=== PATIENT | female | born 1995 | race Two or more races ===

== ENCOUNTER 2016-08-17 16:07 | Outpatient (CLI) | payer BC, MEDICAID ==
[~2016-08-17] VITALS: Ht 160 cm; Wt 71.7 kg
[~2016-08-17 16:07] MED LIST: CYCL-319 PO; IBUP-1542 PO
[2016-08-17 16:34] VITALS: Ht 160 cm; Wt 71.7 kg
[2016-08-17 16:35] VITALS: BP 116/72; PULSE 90; RESP 18
[2016-08-17] MEDS ORDERED: PREN1TAB91 PO (16:39)
[2016-08-17] MEDS ORDERED: FERR325T5 PO (16:40)
[2016-08-17 19:53] LABS: ADD UMIC YES; UR BILIRUBIN (Dip) 1+ (NEGATIVE); UR BLOOD (Dip) NEGATIVE (NEGATIVE); UR CLARITY CLOUDY (CLEAR); UR COLOR YELLOW (YELLOW); UR GLUCOSE (Dip) NEGATIVE (NEGATIVE); UR KETONES (Dip) NEGATIVE (NEGATIVE); UR LEUKOCYTE ESTERASE (Dip) NEGATIVE (NEGATIVE); UR NITRITE (Dip) NEGATIVE (NEGATIVE); UR TOTAL PROTEIN (Dip) TRACE (NEGATIVE); UR UROBILINOGEN (Dip) 1.0 E.U./dL (0.1-1.0)
[2016-08-17 20:31] LABS: ICTOTEST NEGATIVE (NEGATIVE)
[2016-08-17 20:32] LABS: UR AMORPHOUS CRYSTAL MANY; UR BACTERIA FEW; UR SQUAMOUS EPITHELIAL CELL FEW; URINE RBCS NONE SEEN /HPF (0)
--- NOTE | 2016-08-17 21:35 | CONS ---
Date/Time of Note Date/Time of Note DATE: 08/17/16 TIME: 21:29 Consultation Date/Type/Reason Admit Date/Time August 17, 2016 OB triage consult note Reason for Consultation This patient is a 20 years old 2 para 1 who delivered by section also she had a history of a -induced hypertension on 2011 She came to triage clinic complaining of cramping of abdomen pain since morning basically she wanted to rule out possibility of labor On examination her general vital signs was normal with blood pressure of 116/72 , pulse rate 90, respiration 18, and temperature 98.2 she describes her abdominal cramping pain as 5/10 Laboratory Tests Test 08/17/16 16:30 Urine Color YELLOW Urine Clarity CLOUDY Urine pH 5.5 Urine Specific [place] >=1.030 Urine Ketones NEGATIVE Urine Nitrite NEGATIVE Urine Bilirubin 1+ Urine Ictotest NEGATIVE Urine Urobilinogen 1.0 E.U./dL Urine Leukocyte Esterase NEGATIVE Urine Microscopic RBC NONE SEEN/HPF Urine Microscopic WBC NONE SEEN/HPF Urine Squamous Epithelial Cells FEW Urine Amorphous Urates MANY Urine Bacteria FEW Urine Hemoglobin NEGATIVE Urine Glucose NEGATIVE% Urine Total Protein TRACE Constitutional: No chills, No diaphoresis, No disoriented, No febrile, No improved, No no complaints, No other, No poor po, No requiring IVF, No requiring O2 Eyes: No discharge, No no complaints, No other, No pain, No redness, No visual change ENT: No bleeding, No congestion, No discharge, No dysphagia, No no complaints, No other, No pain, No sore throat Respiratory: No cough, No no complaints, No other, No pain, No pleuritic pain, No shortness of breath, No sputum, No wheezing Cardiovascular: No chest pain, No edema, No lightheadedness, No no complaints, No orthopenea, No other, No palpitations, No paroxysmal nocturnal dyspnea Gastrointestinal: No blood, No constipation, No decreased appetite, No diarrhea , No flatus, No nausea, No no complaints, No other, No pain, No passing stool, No vomiting Genitourinary: No bleeding, No discharge, No dysuria, No flank pain, No hematuria, No no complaints, No other Musculoskeletal: No back pain, No bone/joint pain, No neck pain, No no complaints, No other, No restricted range of motion, No swelling Skin: No bruising, No erythema, No laceration, No no complaints, No other, No pruritis, No rash, No skin lesions Neurologic: other (Knee-jerk reflex was normal), No confusion, No dizziness, No focal-weakness, No headache, No no complaints , No seizure, No syncope Endocrine: No dry skin, No no complaints, No other, No polydypsia, No polyuria , No temp intolerance Additional Comments With these normal findings patient was reassured and was discharged home to be followed in the clinic end of dictation Social History Smoking Status: Never smoker Exam/Review of Systems Vital Signs Vitals Vital Signs Date Time Temp Pulse Resp B/P Pulse Ox O2 Delivery O2 Flow Rate FiO2 08/17/16 16:35 98.2 90 18 116/72 100 Room Air Results Results 24 hrs Laboratory Tests Test 08/17/16 16:30 Urine Color YELLOW Urine Clarity CLOUDY Urine pH 5.5 Urine Specific [place] >=1.030 H Urine Ketones NEGATIVE Urine Nitrite NEGATIVE Urine Bilirubin 1+ H Urine Ictotest NEGATIVE Urine Urobilinogen 1.0 E.U./dL Urine Leukocyte Esterase NEGATIVE Urine Microscopic RBC NONE SEEN Urine Microscopic WBC NONE SEEN Urine Squamous Epithelial Cells FEW Urine Amorphous Urates MANY Urine Bacteria FEW Urine Hemoglobin NEGATIVE Urine Glucose NEGATIVE Urine Total Protein TRACE SADIE DEL ANGEL MD Aug 17, 2016 21:35
== END 2016-08-17 18:54 | disposition home or self-care (01) ==
LOC: OBT 16:07 → L-D 16:07 → OBT 18:54
PROVIDERS: ATTEND Obstetrics & Gynecology
DX: O26.90 Pregnancy related conditions, unspecified, unspecified trimester (principal); R10.9 Unspecified abdominal pain; Z3A.00 Weeks of gestation of pregnancy not specified
CPT/HCPCS: 81001

== ENCOUNTER 2016-11-17 11:44 | Inpatient (IN) | payer MEDICAID ==
[~2016-11-17] VITALS: Ht 160 cm; Wt 77.4 kg
[~2016-11-17 11:44] MED LIST changes: -CYCL-319 PO; +FERR325T5 PO; -IBUP-1542 PO; +PREN1TAB91 PO
--- NOTE | 2016-11-17 11:47 | TRIAGE ---
OB Triage Datetime Report Generated by CPN: 11/17/2016 11:46 Datetime: 08/17/2016 17:30 Stage of : OB Triage Maternal Assessment Level of Consciousness: Fully Conscious Headache: Denies Nausea/Vomiting: Denies RUQ Epigastric Pain: Denies Labor Evaluation Frequency: 0 Monitor Mode: External Resting Tone [place]: Relaxed Heart Rate FHR Baseline Rate: 145 Monitor Mode: External US FHR Baseline Changes: No Baseline Change Variability: Moderate 6-25 bpm Decelerations: None Pain Assessment Pain Scale: 0 Pain Presence: None/Denies Pain Type: Ache Pain Location: Abdomen Vaginal Exam Membrane Status: Intact Datetime: 08/17/2016 16:44 EGA: 26.0 Datetime: 08/17/2016 16:30 Time of Arrival: 08/17/2016 16:10 Arrived By: Ambulatory Arrived From: Home Chief Complaint: CRAMPING X 2 DAYS Movement: Present Contractions: IRREG Rupture of Membranes: Denies Vaginal Bleeding: None Vaginal Discharge: Present Recent Sexual Intercouse: Denies Abdominal Trauma: Not Applicable Patient Complaints: Cramping Initial Plan: EFM MONITOR UC'S AND FHR Maternal Assessment Level of Consciousness: Fully Conscious DTR's/Clonus: DTRs 2+ Headache: Denies Blurred Vision: No Nausea/Vomiting: Denies RUQ Epigastric Pain: Denies Facial Edema: None Labor Evaluation Frequency: 0 Monitor Mode: External Resting Tone [place]: Relaxed Heart Rate FHR Baseline Rate: 145 Monitor Mode: External US FHR Baseline Changes: No Baseline Change Variability: Moderate 6-25 bpm Decelerations: None Category: Category I Comments: AGA Pain Assessment Pain Scale: 0 Pain Presence: None/Denies Pain Type: Ache Pain Location: Abdomen Vaginal Exam Membrane Status: Intact
[2016-11-17 12:05] VITALS: Ht 160 cm; Wt 77.4 kg
[2016-11-17 12:06] VITALS: BP 145/94; PULSE 72; RESP 18
[2016-11-17] MEDS ORDERED: LACTATED RINGER'S 1,000 ML IV SCH (12:44)
[2016-11-17] MEDS ORDERED: OXYTOCIN 30 UNITS/LR 500 ML IV PRN ×2 (13:00→22:30)
[2016-11-17] MEDS ORDERED: OXYTOCIN 30 UNITS/LR 500 ML IV SCH (13:00)
[2016-11-17] MEDS ORDERED: CEFAZOLIN 2 GM/50 ML (PMX) 50 ML IV SCH (13:00)
[2016-11-17] MEDS ORDERED: METHYLERGONOVINE 0.2 MG INJ IM PRN (13:00)
[2016-11-17] MEDS ORDERED: CARBOPROST 250 MCG INJ IM PRN ×2 (13:00→22:30)
[2016-11-17] MEDS ORDERED: MISOPROSTOL 200 MCG TAB PR PRN ×2 (13:00→22:30)
[2016-11-17] MEDS ORDERED: LACTATED RINGER'S 1,000 ML IV ONE (13:10)
[2016-11-17] MEDS ORDERED: CITRIC ACID/NA CITRATE 30 ML CUP ONE (13:14)
[2016-11-17] MEDS ORDERED: FAMOTIDINE 20 MG INJ ONE (13:14)
[2016-11-17] MEDS ORDERED: METOCLOPRAMIDE 10 MG INJ ONE (13:15)
[2016-11-17 13:26] LABS: ABNORMAL IP MESSAGE 1; BASOPHILS % 0.3 % (0.0-2.0); EOSINOPHILS # 0.1 10^3/ul (0.0-0.5); EOSINOPHILS % 0.5 % (0.0-7.0); HEMATOCRIT 36.5 % (37.0-47.0); HEMOGLOBIN 11.9 g/dl (12.0-16.0); LYMPHOCYTES # 3.6 10^3/ul (0.8-2.9); LYMPHOCYTES % 30.6 % (15.0-51.0); MEAN CORPUSCULAR HEMOGLOBIN 26.9 pg (29.0-33.0); MEAN CORPUSCULAR HGB CONC 32.6 g/dl (32.0-37.0); MEAN CORPUSCULAR VOLUME 82.4 fl (82.0-101.0); MEAN PLATELET VOLUME 13.5 fl (7.4-10.4); MONOCYTE # 0.7 10^3/ul (0.3-0.9); MONOCYTES % 5.7 % (0.0-11.0); NEUTROPHIL # 7.3 10^3/ul (1.6-7.5); NEUTROPHILS % 62.4 % (39.0-77.0); PLATELET COUNT 174 10^3/UL (140-415); RED BLOOD COUNT 4.43 10^6/ul (4.20-5.40); RED CELL DISTRIBUTION WIDTH 13.2 % (11.5-14.5); WHITE BLOOD COUNT 11.7 10^3/ul (4.8-10.8)
--- NOTE | 2016-11-17 13:26 | HP ---
Date/Time of Note Date/Time of Note DATE: 11/17/16 TIME: 13:22 OB - History Hx of Present Chief Complaint: Elevated BP Estimated Due Date: Nov 23, 2016 : 2 Para: 1 Care: Good Care Ultrasounds: Normal mid trimester US Obstetrical Complications: Pre-eclampsia Medical Complications: None Past Family/Social History * Past Medical, Surgical, Family and Obstetric Histories reviewed from chart. GBS Status: Negative OB Admission Exam Vital Signs Vital Signs Vital Signs Date Time Temp Pulse Resp B/P Pulse Ox O2 Delivery O2 Flow Rate FiO2 11/17/16 12:06 98.1 72 18 145/94 Physical Exam HEENT: WNL Heart: Rhythm Normal Lungs: Clear, Equal Abdomen: WNL Extremities: Normal Reflexes: Normal Heart Rate: 130's Accelerations: Accelerations Present Decelerations: No Decelerations OB Assessment/Plan Reason for admission: section Other Assessment: Term Previous Preeclampsia Plan: Section EULOGIO GATES MD Nov 17, 2016 13:26
[2016-11-17 13:29] LABS: POSITIVE DIFF @See below
[2016-11-17] MEDS ORDERED: CITRIC ACID/NA CITRATE 30 ML CUP PO ONE (13:30)
[2016-11-17] MEDS ORDERED: METOCLOPRAMIDE 10 MG INJ IV ONE (13:30)
[2016-11-17] MEDS ORDERED: FAMOTIDINE 20 MG INJ IV ONE (13:30)
[2016-11-17 13:36] LABS: INR 0.85; PROTIME 11.6 Sec (12.2-14.2); PT RATIO 0.9
[2016-11-17 13:37] LABS: PARTIAL THROMBOPLASTIN TIME 27.8 Sec (25.0-35.0)
[2016-11-17 13:40] LABS: ALBUMIN 3.3 g/dl (3.3-4.9); ALBUMIN/GLOBULIN RATIO 1.03; BILIRUBIN,INDIRECT 0.4 mg/dl (0-1.1); BILIRUBIN,TOTAL 0.4 mg/dl (0.2-1.3); CALCIUM 9.6 mg/dl (8.4-10.2); CREATININE 0.55 mg/dl (0.44-1.00); POTASSIUM 4.2 mmol/L (3.5-5.1); TOTAL PROTEIN 6.5 g/dl (6.1-8.1); URIC ACID 6.4 mg/dl (3.1-7.9)
[2016-11-17] MEDS ORDERED: FENTAnyl 50 MCG/ML VIAL ONE (13:43)
[2016-11-17] MEDS ORDERED: morphine SULFATE/PF (10 MG/10 ML) INJ ONE (13:44)
[2016-11-17] MEDS ORDERED: ONDANSETRON 4 MG INJ ONE (14:22)
[2016-11-17] MEDS ORDERED: PHENYLephrine (100 MCG/ML) 5ML SYG ONE (14:23)
[2016-11-17] MEDS ORDERED: KETOROLAC 30 MG INJ IV PRN (14:30)
[2016-11-17] MEDS ORDERED: ZOLPIDEM 5 MG TAB PO PRN (14:30)
[2016-11-17] MEDS ORDERED: DIPHENHYDRAMINE 50 MG INJ IV PRN ×2 (14:30)
[2016-11-17] MEDS ORDERED: FENTAnyl 50 MCG/ML VIAL IV PRN (14:30)
[2016-11-17] MEDS ORDERED: NALOXONE (0.4 MG/ML) INJ IV PRN (14:30)
[2016-11-17] MEDS ORDERED: HYDROmorphONE (0.2 MG/ML) 10ML SYG IV PRN (14:30)
[2016-11-17] MEDS ORDERED: MEPERIDINE 25 MG INJ IV PRN (14:30)
[2016-11-17] MEDS ORDERED: HYDROmorphONE 1 MG/ML SYG IV PRN ×2 (14:30)
[2016-11-17] MEDS ORDERED: ONDANSETRON 4 MG INJ IV PRN ×2 (14:30)
[2016-11-17] MEDS ORDERED: PROCHLORPERAZINE 10 MG INJ IV PRN (14:30)
[2016-11-17] MEDS ORDERED: OXYTOCIN 30 UNITS/LR 500 ML IV ONE (14:31)
[2016-11-17] MEDS ORDERED: MEPERIDINE 100 MG INJ ONE (14:41)
--- NOTE | 2016-11-17 14:55 | SIPON ---
Date/Time of Note Date/Time of Note DATE: 11/17/16 TIME: 14:52 Operative Report Preoperative Diagnosis Term , Previous C/S, Preeclampsia Postoperative Diagnosis Same Operation/Procedure Performed Repeat C/S Surgeon Eulogio Gates MD geriatric assistant Blair Lockett MD Anesthesia: spinal Estimated blood loss: other (600 ml) Transfusion Required none Specimen placenta Grafts/Implants none Complications none EULOGIO GATES MD Nov 17, 2016 14:55
--- NOTE | 2016-11-17 17:01 | OPR ---
DATE OF OPERATION: 11/17/2016 PREOPERATIVE DIAGNOSES: 1. at term with previous section. 2. -induced hypertension. POSTOPERATIVE DIAGNOSES: 1. at term with previous section. 2. -induced hypertension. OPERATION PERFORMED: Repeat low-transverse section. SURGEON: Dr. Jayant Smith. CHIROPRACTOR ASSISTANT: . ANESTHESIA: Spinal. ANESTHESIOLOGIST: . OPERATION PERFORMED: Patient was taken to the operating room, placed on the operating table. After successful spinal anesthesia was given. The patient was placed in supine position. The area was prepared and draped in the usual sterile fashion. Using scalpel, incision was made about 2 fingerbreadths above the symphysis pubis. The incision was carried to the fascia. The fascia was incised and extended bilaterally with French scissors. Two Chelsea's were used to separate the fascia from the muscle. The muscle was dissected down to the peritoneum. The peritoneum was secured with 2 Pati's and incised with Metzenbaum scissors. Using a scalpel, a transverse incision was made on the lower segment of the uterus. Upon entering the uterine cavity. Pfannenstiel was inserted to extend the incision bilaterally. Carefully, the baby was delivered from cephalic presentation. After suctioned clear of amniotic fluid he was handed off to the team in attendance. Apgars were 9 and 9. The placenta was delivered without difficulty. The uterus was closed with number 1 Monocryl continuous locked fashion and achieved hemostasis. Both ovaries and tubes were inspected and all looked normal. The peritoneum was closed with 2-0 Vicryl continuous. The fascia was closed with number 1 Vicryl continuous in 2 segments. Subcutaneous tissue was reapproximated with 2-0 plain. The skin was closed elisabet. ESTIMATED BLOOD LOSS: 600 cc. COUNTS: All counts were correct. Dictated By: Jayant Smith MD /[email or web address]/opal /Document#: [id number]
[2016-11-17 20:35] VITALS: BP 133/87; PULSE 77; RESP 19
[2016-11-17] MEDS: LACTATED RINGER'S 1,000 ML IV SCH (20:40)
[2016-11-17 22:26] LABS: ADD UMIC YES; UR ASCORBIC ACID NEGATIVE (NEGATIVE); UR BACTERIA FEW /HPF (NONE SEEN); UR BILIRUBIN (Dip) NEGATIVE (NEGATIVE); UR BLOOD (Dip) 1+ mg/dL (NEGATIVE); UR CLARITY SLIGHTLY CLOUDY (CLEAR); UR COLOR YELLOW (YELLOW); UR GLUCOSE (Dip) NEGATIVE (NEGATIVE); UR KETONES (Dip) NEGATIVE (NEGATIVE); UR LEUKOCYTE ESTERASE (Dip) 1+ Leu/ul (NEGATIVE); UR MUCUS FEW /HPF (NONE SEEN); UR NITRITE (Dip) NEGATIVE (NEGATIVE); UR RBC 2 /HPF (0-5); UR SPECIFIC GRAVITY (Dip) 1.018 (1.003-1.030); UR SQUAMOUS EPITHELIAL CELL MODERATE /HPF (FEW); UR TOTAL PROTEIN (Dip) 3+ mg/dl (NEGATIVE); UR UROBILINOGEN (Dip) NEGATIVE (NEGATIVE)
[2016-11-17] MEDS ORDERED: LANOLIN 7 GM TUBE TOP PRN (22:30)
[2016-11-17] MEDS: OXYTOCIN 30 UNITS/LR 500 ML IV SCH (22:51)
[2016-11-18] VITALS: BP 128/79; PULSE 82; RESP 19
[2016-11-18] MEDS: KETOROLAC 30 MG INJ IV PRN ×2 (00:01→07:34)
[2016-11-18] MEDS: OXYTOCIN 30 UNITS/LR 500 ML IV SCH (03:55)
[2016-11-18 04:55] VITALS: BP 127/85; PULSE 80; RESP 18
[2016-11-18 07:34] VITALS: BP 128/83; PULSE 81; RESP 19
[2016-11-18] MEDS: LACTATED RINGER'S 1,000 ML IV SCH ×3 (08:28→22:23)
[2016-11-18] MEDS: SENNA/DOCUSATE NA (8.6MG/50MG) TAB PO SCH ×2 (08:56→21:31)
[2016-11-18 11:43] LABS: BASOPHILS % 0.2 % (0.0-2.0); EOSINOPHILS % 0.2 % (0.0-7.0); HEMATOCRIT 26.3 % (37.0-47.0); HEMOGLOBIN 8.5 g/dl (12.0-16.0); LYMPHOCYTES # 2.5 10^3/ul (0.8-2.9); MEAN CORPUSCULAR HEMOGLOBIN 26.4 pg (29.0-33.0); MEAN CORPUSCULAR HGB CONC 32.3 g/dl (32.0-37.0); MEAN CORPUSCULAR VOLUME 81.7 fl (82.0-101.0); MEAN PLATELET VOLUME 12.9 fl (7.4-10.4); MONOCYTE # 0.6 10^3/ul (0.3-0.9); MONOCYTES % 4.9 % (0.0-11.0); NEUTROPHIL # 8.2 10^3/ul (1.6-7.5); NEUTROPHILS % 72.3 % (39.0-77.0); PLATELET COUNT 151 10^3/UL (140-415); RED BLOOD COUNT 3.22 10^6/ul (4.20-5.40); RED CELL DISTRIBUTION WIDTH 13.5 % (11.5-14.5); WHITE BLOOD COUNT 11.4 10^3/ul (4.8-10.8)
[2016-11-18 12:00] VITALS: BP 125/81; PULSE 85; RESP 19
[2016-11-18] MEDS ORDERED: OXYCODONE/ACETAMINOPHEN (5/325) TAB PO PRN (14:02)
[2016-11-18] MEDS: OXYCODONE/ACETAMINOPHEN (5/325) TAB PO PRN ×2 (14:05→19:40)
[2016-11-18 16:00] VITALS: BP 122/80; PULSE 83; RESP 19
--- NOTE | 2016-11-18 16:36 | QN ---
Documentation Comment No complaint Afebrile VSS abdomen soft ND POD #1 stable Ambulate Advance diet. EULOGIO GATES MD Nov 18, 2016 16:36
[2016-11-18 20:00] VITALS: BP 120/76; PULSE 78; RESP 18
[2016-11-18] MEDS: IBUPROFEN 800 MG TAB PO SCH (22:00)
[2016-11-19] MEDS: OXYCODONE/ACETAMINOPHEN (5/325) TAB PO PRN ×2 (00:06→10:10)
[2016-11-19 04:00] VITALS: BP 120/83; PULSE 84; RESP 18
[2016-11-19] MEDS: LACTATED RINGER'S 1,000 ML IV SCH ×2 (06:23→21:17)
[2016-11-19] MEDS: IBUPROFEN 800 MG TAB PO SCH ×3 (06:37→21:18)
[2016-11-19 07:45] VITALS: BP 128/77; PULSE 90; RESP 18
[2016-11-19] MEDS: SENNA/DOCUSATE NA (8.6MG/50MG) TAB PO SCH ×2 (10:11→21:17)
--- NOTE | 2016-11-19 13:44 | QN ---
Documentation Comment pod2 pt doing well vss exam wnl CDI a/p pod2 continue care DOMINIC FRAUSTO MD Nov 19, 2016 13:44
[2016-11-19 15:45] VITALS: BP 116/74; PULSE 83; RESP 18
[2016-11-19 19:30] VITALS: BP 124/82; PULSE 78; RESP 18
[2016-11-20] MEDS: OXYCODONE/ACETAMINOPHEN (5/325) TAB PO PRN ×2 (01:27→09:30)
[2016-11-20 04:00] VITALS: BP 128/87; PULSE 75; RESP 17
[2016-11-20] MEDS: IBUPROFEN 800 MG TAB PO SCH ×2 (05:47→13:37)
[2016-11-20 08:00] VITALS: BP 123/79; PULSE 79; RESP 17
[2016-11-20] MEDS ORDERED: DIPHTH/TET/ACEL PERTUSS (ADULT) 0.5 ML VIAL IM* ONE (09:00)
[2016-11-20] MEDS: SENNA/DOCUSATE NA (8.6MG/50MG) TAB PO SCH (09:29)
--- NOTE | 2016-11-20 10:47 | PN ---
Date/Time of Note Date/Time of Note DATE: 11/20/16 TIME: 10:45 OB Subjective Subjective Subjective No complaints. OB Objective Objective Objective Gen: NAD Abd: I-C/D/I OB Assessment/Plan Other Assessment: POD3 s/p Other plan: Discharge home with rx for pain meds. Pelvic rest and no heavy lifting. F/u with OB clinic for incision check and care. GONZÁLEZ SUAREZ Nov 20, 2016 10:47
--- NOTE | 2016-11-20 10:51 | DS ---
Date/Time of Note Date/Time of Note DATE: 11/20/16 TIME: 10:50 Obstetrical Discharge Record Final Diagnosis Final Diagnosis: Term delivered Section Section: Repeat Complications Preg induced Hypertension Condition on Discharge Physical Assessment Last Vitals: See PN Patient Condition: Good GONZÁLEZ SUAREZ Nov 20, 2016 10:51
== END 2016-11-20 14:20 | disposition home or self-care (01) | DRG 766 ==
LOC: L-D 11:44 → OBT 11:44 → L-D 12:30 → OBT 12:52 → L-D 13:46 → PP1 20:33
PROVIDERS: ADMIT Obstetrics & Gynecology; ATTEND Obstetrics & Gynecology
PROC: 10D00Z1 Extraction of Products of Conception, Low, Open Approach (ICD-10-PCS; principal; 2016-11-17 13:30)
DX: O14.93 Unspecified pre-eclampsia, third trimester (principal); Z37.0 Single live birth; Z3A.00 Weeks of gestation of pregnancy not specified; O34.219 Maternal care for unspecified type scar from previous cesarean delivery
CPT/HCPCS: 80053; 81001; 84560; 85025; 85384; 85610; 85730; 86592; 86850; 86900; 86901; 90715; 94760; 99464; G0463; J0690; J1170; J1885; J2175; J2274; J2370; J2405; J2590; J2765; J3010; J7120